=== PATIENT | male | born 1975 | race Two or more races ===

== ENCOUNTER 2022-04-08 10:59 | Emergency (ER) | payer OTHER ==
[~2022-04-08] VITALS: Ht 167.6 cm; Wt 77.1 kg
--- NOTE | 2022-04-08 10:59 | NUR ---
BIB FRIEND WANTING A MEDICATION REFILL OF ATIVAN, RAN OUT 2 DAYS AGO, AWAITING APPOINTMENT WITH PRIMARY
[2022-04-08] MEDS ORDERED: LORA-259 PO (12:25)
[2022-04-08] MEDS ORDERED: LORAZEPAM 1 MG TABLET ONE (12:28)
[2022-04-08] MEDS ORDERED: LORAZEPAM 1 MG TABLET PO ONE (12:30)
--- NOTE | 2022-04-08 12:30 | NUR ---
ATIVAN 1MG PO GIVEN INDICATED
[2022-04-08 12:36] VITALS: BP 132/91
--- NOTE | 2022-04-08 12:36 | NUR ---
Patient discharged to home in stable condition. Written and verbal after care instructions given. Patient verbalizes understanding of instruction.
== END 2022-04-08 12:37 | disposition home or self-care (01) ==
LOC: ER 11:10
DX: F41.9 Anxiety disorder, unspecified (principal); Z60.2 Problems related to living alone; Z79.899 Other long term (current) drug therapy